=== PATIENT | female | born 1985 | race Caucasian/White ===

== ENCOUNTER → 2018-05-20 | Outpatient (CLI) | payer OTHER ==
--- NOTE | 2018-05-20 17:44 | CONS ---
CONSULTATION DATE OF SERVICE: 05/20/2018 33-year-old lady has been [facility] for sleep problems related to falling asleep and also multiple awakenings from sleep around 10 times. HISTORY OF PRESENT ILLNESS/SLEEP-WAKE EVALUATION: Patient trying to have regular sleep schedule so she is trying to go to bed at 10:00 p.m. and gets up at 6:00 a.m., although she wakes up at around 5:00 a.m. She does have problems with falling asleep, although no TV in bedroom. She sleeps in different positions including back, side and stomach. She snores and as I already mentioned above she wakes up from sleep in amount of 10 times with 2 episodes of nocturia. She wakes up with dry mouth. She is a mouth breather. She has episodes of panic attack, palpitations, sweating. She may have a history of starting to see dreams right after closing your eyes. No history of sleep paralysis or cataplexy. During the day patient trying not to take any naps following recommendations for sleep hygiene. [place] Sleepiness Scale increased to 11. In the morning patient wakes up tired, has difficulties to pay attention, worry about her sleep, has problems with memory, concentration, irritability, depression and anxiety. PAST MEDICAL HISTORY: Positive for anxiety, depression, audiovisual hallucinations. MEDICATIONS: Alprazolam, Buspirone, PAST SURGICAL HISTORY: None. FAMILY HISTORY: Hypertension, heart problems, hyperlipidemia, stroke, arthritis, sinus headaches, snoring, cancer, diabetes, thyroid problems, anemia, mental illness. SOCIAL HISTORY: Negative for smoking or using alcohol. REVIEW OF SYSTEMS: Difficulties to initiate sleep, multiple awakenings from sleep. PHYSICAL EXAM: GENERAL A 33-year-old lady without distress. VITAL SIGNS BP 128/89, HR 88, RR 18, height 5 feet 3/4, weight 204.8, BMI 38.9, temperature 98.1. Oxygen saturation on room air 97%. HEENT PERRLA, EOMI, evaluation of oropharynx showed 1 mm retrognathia, low position of soft palate. Neck is 15 inches in circumference. NECK Supple, no JVD. Thyroid is not palpable. LUNGS Clear to percussion and to auscultation. Good air exchange. No wheezing or rhonchi. HEART S1, S2 regular. No murmurs, gallops, or rubs. ABDOMEN Slightly obese. Soft and nontender. Bowel sounds are present. No organomegaly appreciated. EXTREMITIES No clubbing or cyanosis. COURT STENOGRAPHER Awake, alert, and oriented X3. Cranial nerves 2 to 7 intact. There is no fasciculation or atrophy. noted. No focal deficits observed. IMPRESSION: 1. Snoring, multiple awakenings from sleep more than 10 times, low position of soft palate, obstructive sleep apnea-hypopnea syndrome. 2. Insomnia, psychophysiological and possibly related to anxiety and depression. 3. History of anxiety. 4. History of depression. 5. History of audiovisual hallucinations. PLAN: 1. I discussed with the patient psychological techniques for treatment of insomnia including stimulus control, paradoxical intention, worry time. 2. Polysomnography for evaluation of patient's breathing during sleep. 3. CPAP/BiPAP titration if sleep study confirms obstructive sleep apnea-hypopnea syndrome. 4. Preferable position during sleep on the side. 5. No driving if patient feels any sleepiness. 6. I will see patient for follow up visit to explain results of testing and following plan. Thank you very much for referring this patient for consultation. Sincerely, Wali Woodall MD, PhD, FAASM Diplomat of [employer] Worker of [facility] [place] MMODL / BESSYN: [id number] /
== END | disposition home or self-care (01) ==
LOC: SLEEP 15:38
PROVIDERS: ATTEND Internal Medicine
DX: G47.33 Obstructive sleep apnea (adult) (pediatric) (principal); F41.9 Anxiety disorder, unspecified; F32.9 Major depressive disorder, single episode, unspecified; Z86.59 Personal history of other mental and behavioral disorders; Z79.899 Other long term (current) drug therapy
CPT/HCPCS: 99211

== ENCOUNTER 2019-07-01 21:06 | Outpatient (CLI) | payer OTHER, BC ==
[2019-07-01 22:01] VITALS: BP 134/87; PULSE 97; RESP 18; TEMP 98.7
--- NOTE | 2019-08-10 00:31 | P.MSEPDOC ---
Presenting Problems - Arrival Data Date of Arrival on Unit: 07/01/19 Time of Arrival on Unit: 21:06 Mode of Transport: Ambulatory - Complaint OB-Reason for Admission/Chief Complaint: Acute Nausea/Vomiting Medical History - Information : 2 Para: 1 Term: 1 : 0 Abortions: Spontaneous or Elective: 0 Number of Living Children: 1 - Gestational Age Gestational Age by ANDRY (wks/days): 20 Weeks and 2 Days Review of Systems - Review of Systems Constitutional: No problems Breast: No problems ENT: No problems Cardiovascular: No problems Respiratory: No problems Gastrointestinal: No problems Genitourinary: No problems Musculoskeletal: No problems Neurological: No problems Skin: No problems Vital Signs - Temperature Temperature: 98.7 F Temperature Source: Oral - Pulse Right Pulse Oximetery Pulse Rate: 97 Pulse Assessment Method: Pulse Oximetry - Respirations Respiratory Rate: 18 Oxygen Delivery Method: Room Air O2 Sat by Pulse Oximetry: 97 - Blood Pressure Right Arm Blood Pressure: 134/87 Blood Pressure Mean: 102 Blood Pressure Source: Automatic Cuff Medical Screen Scoring (Pre) - Cervical Exam Dilation: Exam Deferred Effacement: Exam Deferred Membranes: Intact - Uterine Contractions Frequency: N/A Duration: N/A Intensity: N/A - Maternal Vital Signs Maternal Temperature: N/A Signs of Preeclampsia: N/A Maternal Respirations: N/A - Maternal Trauma Maternal Trauma: N/A - Assessment - Baby A Baseline FHR: 145 Heart Rate - NICHD Category: Category I (Normal) = 0 Position: N/A Station: N/A - Total Score - Baby A Total Score - Baby A: 0 - Total Score - Baby B Total Score - Baby B: 0 - Total Score - Baby C Total Score - Baby C: 0 - Level of Risk - Baby A Level of Risk - Baby A: Low (0-5) - Level of Risk - Baby B Level of Risk - Baby B: Low (0-5) - Level of Risk - Baby C Level of Risk - Baby C: Low (0-5) Physician Notification (Pre) - Physician Notified Physician Notified Date: 07/01/19 Physician Notified Time: 21:45 Physician/Practitioner Notifed:: Yoan Spoke With: Yoan New Order Received: Yes - Notification Comment Comment: pt here for N/V x 3 hours. head cold x 1 week. HR wnl, instructions given if vomiting persists and cannot keep anything down for 24 hours to call her Dr or go to ER Disposition - Disposition OB Disposition: Discharge to home Discharge Date: 07/01/19 Discharge Time: 21:50 I agree with the RN Medical Screening Exam: Yes Risk & Benefit of care provided described in d/c instruction: Yes Diagnosis: NAUSEA WITH VOMITING, UNSPECIFIED
== END 2019-07-01 21:50 | disposition home or self-care (01) ==
LOC: FBPOP 21:06
PROVIDERS: ATTEND Obstetrics & Gynecology
DX: O21.9 Vomiting of pregnancy, unspecified (principal); Z3A.20 20 weeks gestation of pregnancy
CPT/HCPCS: 99213

== ENCOUNTER 2021-05-19 19:21 | Emergency (ER) | payer OTHER, BC ==
[2021-05-19 19:32] VITALS: TEMP 98.3
[2021-05-19] MEDS ORDERED: SODIUM CHLORIDE 0.9% 1,000 ML IV ONE (19:50)
--- NOTE | 2021-05-19 20:00 | ED ---
General Adult HPI - General Chief complaint: Vaginal Bleeding Stated complaint: vaginal bleeding, 12 weeks Time Seen by Provider: 05/19/21 19:42 Source: patient Mode of arrival: ambulatory Limitations: no limitations - History of Present Illness Initial comments: 36 year-old female patient who is almost 12 weeks , G3,P2,A0 presents to the emergency department for evaluation of vaginal bleeding. States she has had some light pink spotting during this , but today had increased bleeding. States that she had bright red bleeding that turned to brown. She has had to wear a pad but denies having to change it. She reports lower abdominal cramping. She has not had ultrasound. She is awaiting to be assigned an OBGYN at [facility] in [place]. She denies any hematuria, dysuria, urinary frequency, urinary urgency. Denies any abnormal vaginal discharge or concern for sexually transmitted infections. She's had 2 previous normal pregnancies with no complications. Patient denies any recent rash, fever, chills, cough, shortness of breath, chest pain, nausea, vomiting, diarrhea, constipation, numbness, tingling, dizziness, weakness, headache, visual changes, or any other complaints. - Related Data Home Medications Medication Instructions Recorded Confirmed Cholecalciferol [Vitamin D3 (25 1,000 unit PO DAILY 07/01/19 07/01/19 Mcg = 1000 Iu)] Folic Acid 1 mg PO DAILY 07/01/19 07/01/19 Tgh-Hwpe-Tysvd Acid 1 cap PO DAILY 07/01/19 07/01/19 [-U Capsule (formulary)] Allergies Allergy/AdvReac Type Severity Reaction Status Date / Time Influenza Virus Vaccines Allergy Severe Rash/Hives Verified 05/19/21 19:32 Latex, Natural Rubber Allergy Severe Rash/Hives Verified 05/19/21 19:32 cranberry Allergy Intermediate Rash/Hives Verified 05/19/21 19:32 jessica Allergy Intermediate Rash/Hives Verified 05/19/21 19:32 Review of Systems ROS Statement: Those systems with pertinent positive or pertinent negative responses have been documented in the HPI. ROS Other: All systems not noted in ROS Statement are negative. Past Medical History Additional Past Medical History / Comment(s): hypercholestremia. migraines History of Any Multi-Drug Resistant Organisms: None Reported Past Surgical History: Section Past Psychological History: Anxiety, Depression Smoking Status: Never smoker Past Alcohol Use History: None Reported Past Drug Use History: None Reported General Exam Limitations: no limitations General appearance: alert, in no apparent distress, other (Physical well-developed, well-nourished adult female patient in no acute distress. Vital signs upon presentation are temperature 98.2F, pulse 96, respirations 18, blood pressure 129/89, pulse ox 97% on room air.) ENT exam: Present: normal exam, normal oropharynx, mucous membranes moist Respiratory exam: Present: normal lung sounds bilaterally. Absent: respiratory distress, wheezes, rales, rhonchi, stridor Cardiovascular Exam: Present: regular rate, normal rhythm, normal heart sounds. Absent: systolic murmur, diastolic murmur, rubs, gallop, clicks GI/Abdominal exam: Present: soft, normal bowel sounds. Absent: distended, tenderness, guarding, rebound, rigid Neurological exam: Present: alert, oriented X3, CN II-XII intact Psychiatric exam: Present: normal affect, normal mood Skin exam: Present: warm, dry, intact, normal color. Absent: rash Course Vital Signs 05/19/21 05/19/21 05/19/21 19:27 20:00 21:03 Temperature 98.3 F Pulse Rate 96 94 92 Respiratory 18 20 22 Rate Blood Pressure 129/89 117/72 120/85 O2 Sat by Pulse 97 97 97 Oximetry 05/19/21 21:46 Temperature Pulse Rate 98 Respiratory 20 Rate Blood Pressure 105/69 O2 Sat by Pulse 99 Oximetry Medical Decision Making - Medical Decision Making 36-year-old female patient who believed to be 12 weeks , G3, P2 presents for evaluation of vaginal bleeding and cramping. Physical exam was unremarkable. Labs reviewed, HCG 678.1. US shows gestational sac without fetus consistent with blighted ovum. I did discuss the case with Dr. Rubi. Patient will be discharged to call in the morning for an appointment. I did discuss findings, results with the patient. She agrees with the plan. Return parameters were discussed in det ail. She verbalizes understanding. My attending is Dr. Roque. - Lab Data Result diagrams: 05/19/21 19:53 05/19/21 19:53 Lab Results 05/19/21 05/19/21 05/19/21 Range/Units 19:53 19:53 19:53 WBC 7.5 (3.8-10.6) k/uL RBC 4.84 (3.80-5.40) m/uL Hgb 14.7 (11.4-16.0) gm/dL Hct 42.2 (34.0-46.0) % MCV 87.3 (80.0-100.0) fL MCH 30.4 (25.0-35.0) pg MCHC 34.9 (31.0-37.0) g/dL RDW 12.5 (11.5-15.5) % Plt Count 305 (150-450) k/uL MPV 6.8 Neutrophils % 62 % Lymphocytes % 28 % Monocytes % 6 % Eosinophils % 1 % Basophils % 1 % Neutrophils # 4.7 (1.3-7.7) k/uL Lymphocytes # 2.1 (1.0-4.8) k/uL Monocytes # 0.5 (0-1.0) k/uL Eosinophils # 0.1 (0-0.7) k/uL Basophils # 0.1 (0-0.2) k/uL Sodium 136 L (137-145) mmol/L Potassium 4.1 (3.5-5.1) mmol/L Chloride 104 (98-107) mmol/L Carbon Dioxide 22 (22-30) mmol/L Anion Gap 10 mmol/L BUN 8 (7-17) mg/dL Creatinine 0.58 (0.52-1.04) mg/dL Est GFR (CKD-EPI)AfAm >90 (>60 ml/min/1.73 sqM) Est GFR (CKD-EPI)NonAf >90 (>60 ml/min/1.73 sqM) Glucose 117 H (74-99) mg/dL Calcium 9.9 (8.4-10.2) mg/dL Total Bilirubin 0.8 (0.2-1.3) mg/dL AST 26 (14-36) U/L ALT 21 (4-34) U/L Alkaline Phosphatase 66 (38-126) U/L Total Protein 7.3 (6.3-8.2) g/dL Albumin 4.5 (3.5-5.0) g/dL HCG, Quant 678.1 mIU/mL Urine Color Light Yellow Urine Appearance Clear (Clear) Urine pH 6.0 (5.0-8.0) Ur Specific [address] 1.006 (1.001-1.035) Urine Protein Negative (Negative) Urine Glucose (UA) Negative (Negative) Urine Ketones Negative (Negative) Urine Blood Moderate H (Negative) Urine Nitrite Negative (Negative) Urine Bilirubin Negative (Negative) Urine Urobilinogen <2.0 (<2.0) mg/dL Ur Leukocyte Esterase Negative (Negative) Urine RBC 3 (0-5) /hpf Urine WBC 1 (0-5) /hpf Ur Squamous Epith Cells 1 (0-4) /hpf Urine Bacteria Occasional H (None) /hpf Urine Mucus Rare H (None) /hpf Blood Type Blood Type Recheck Bld Type Recheck Status 05/19/21 Range/Units 19:53 WBC (3.8-10.6) k/uL RBC (3.80-5.40) m/uL Hgb (11.4-16.0) gm/dL Hct (34.0-46.0) % MCV (80.0-100.0) fL MCH (25.0-35.0) pg MCHC (31.0-37.0) g/dL RDW (11.5-15.5) % Plt Count (150-450) k/uL MPV Neutrophils % % Lymphocytes % % Monocytes % % Eosinophils % % Basophils % % Neutrophils # (1.3-7.7) k/uL Lymphocytes # (1.0-4.8) k/uL Monocytes # (0-1.0) k/uL Eosinophils # (0-0.7) k/uL Basophils # (0-0.2) k/uL Sodium (137-145) mmol/L Potassium (3.5-5.1) mmol/L Chloride (98-107) mmol/L Carbon Dioxide (22-30) mmol/L Anion Gap mmol/L BUN (7-17) mg/dL Creatinine (0.52-1.04) mg/dL Est GFR (CKD-EPI)AfAm (>60 ml/min/1.73 sqM) Est GFR (CKD-EPI)NonAf (>60 ml/min/1.73 sqM) Glucose (74-99) mg/dL Calcium (8.4-10.2) mg/dL Total Bilirubin (0.2-1.3) mg/dL AST (14-36) U/L ALT (4-34) U/L Alkaline Phosphatase (38-126) U/L Total Protein (6.3-8.2) g/dL Albumin (3.5-5.0) g/dL HCG, Quant mIU/mL Urine Color Urine Appearance (Clear) Urine pH (5.0-8.0) Ur Specific [address] (1.001-1.035) Urine Protein (Negative) Urine Glucose (UA) (Negative) Urine Ketones (Negative) Urine Blood (Negative) Urine Nitrite (Negative) Urine Bilirubin (Negative) Urine Urobilinogen (<2.0) mg/dL Ur Leukocyte Esterase (Negative) Urine RBC (0-5) /hpf Urine WBC (0-5) /hpf Ur Squamous Epith Cells (0-4) /hpf Urine Bacteria (None) /hpf Urine Mucus (None) /hpf Blood Type B Positive Blood Type Recheck No Previous Record Bld Type Recheck Status ABR ONLY - Radiology Data Radiology results: report reviewed, image reviewed Feel ultrasound was obtained. Report is reviewed in its entirety. Impression by Dr. Myrick shows intrauterine gestational sac which measures 2.4 x 3 x 1.27 years. No yolk sac or pole seen. This could relate to blighted ovum. Disposition Clinical Impression: Blighted ovum Disposition: HOME SELF-CARE Condition: Good Instructions (If sedation given, give patient instructions): Miscarriage (ED) Additional Instructions: Call [facility] in the morning for an appointment. Inform them that Dr. Rubi is aware of the case after emergency visit and you need an appointment. Return to the emergency department immediately for any new, worsening, or concerning symptoms Is patient prescribed a controlled substance at d/c from ED?: No Referrals: [facility],Clinic [Primary Care Provider] - 1-2 days Natali Rubi DO [Doctor of Osteopathic Medicine] - 1-2 days Time of Disposition: 21:40
[2021-05-19 20:17] LABS: Basophils # (A) 0.1 k/uL (0-0.2); Basophils % (A) 1 %; Eosinophils # (A) 0.1 k/uL (0-0.7); Eosinophils % (A) 1 %; HCT 42.2 % (34.0-46.0); HGB 14.7 gm/dL (11.4-16.0); Lymphocytes # (A) 2.1 k/uL (1.0-4.8); Lymphocytes % (A) 28 %; MCH 30.4 pg (25.0-35.0); MCHC 34.9 g/dL (31.0-37.0); MCV 87.3 fL (80.0-100.0); Mean Platelet Volume 6.8; Monocytes # (A) 0.5 k/uL (0-1.0); Monocytes % (A) 6 %; Neutrophils # (A) 4.7 k/uL (1.3-7.7); Neutrophils % (A) 62 %; Platelet Count 305 k/uL (150-450); RBC 4.84 m/uL (3.80-5.40); RDW 12.5 % (11.5-15.5); WBC 7.5 k/uL (3.8-10.6)
[2021-05-19 20:21] LABS: Appearance,Urine Clear (Clear); Bacteria,Urine Occasional /hpf; Bilirubin,Urine Negative (Negative); Blood,Urine Moderate (Negative); Color,Urine Light Yellow; Glucose,Urine (UA) Negative (Negative); Ketones,Urine Negative (Negative); Leukocyte Esterase,Urine Negative (Negative); Mucus,Urine Rare /hpf; Nitrite,Urine Negative (Negative); Protein,Urine Negative (Negative); RBC,Urine 3 /hpf (0-5); Specific Gravity,Urine 1.006 (1.001-1.035); Squamous Epithelial Cell,Urine 1 /hpf (0-4); Urobilinogen,Urine <2.0 mg/dL (<2.0); WBC,Urine 1 /hpf (0-5)
[2021-05-19 20:29] LABS: ALT 21 U/L (4-34); AST 26 U/L (14-36); African American GFR (CKD) >90 (>60 ml/min/1.73 sqM); Albumin 4.5 g/dL (3.5-5.0); Alkaline Phosphatase 66 U/L (38-126); Anion Gap 10 mmol/L; Blood Urea Nitrogen 8 mg/dL (7-17); Calcium 9.9 mg/dL (8.4-10.2); Carbon Dioxide 22 mmol/L (22-30); Chloride 104 mmol/L (98-107); Glucose 117 mg/dL (74-99); Non-African American GFR(CKD) >90 (>60 ml/min/1.73 sqM); Potassium 4.1 mmol/L (3.5-5.1); Sodium 136 mmol/L (137-145); Total Bilirubin 0.8 mg/dL (0.2-1.3); Total Protein 7.3 g/dL (6.3-8.2)
[2021-05-19 20:45] LABS: HCG,Quantitative Serum 678.1 mIU/mL
--- NOTE | 2021-05-19 21:06 | US ---
EXAMINATION TYPE: Transabdominal DATE OF EXAM: 05/19/2021 8:46 PM COMPARISON: NONE CLINICAL HISTORY: Vaginal bleeding. bleeding EXAM PERFORMED: Transabdominal (TA) EXAM MEASUREMENTS: GESTATIONAL AGE / DATING Physician Established: Not yet established Dates by LMP: (11 weeks/5 days) EDC: 12/03/2021 Dates by First Scan: No previous this is first scan Dates by Current Scan for: No IUP seen at this time MATERNAL ANATOMY Uterus: 13.5 x 4.5 x 7.4 cm Right Ovary: 2.8 x 2.1 x 2.6 cm Left Ovary: 2.6 x 2.3 x 3.7 cm Post CDS / Adnexa: wnl Presence of free fluid: no Presence of corpus luteal cyst: no Presence of subchorionic bleed: no GESTATION / SURVEY MSD: 2.19 cm (6 weeks/5 days) IUP: No IUP seen at this time IMPRESSION: There is intrauterine gestational sac which measures 2.4 x 3 x 1.2 cm. No yolk sac or pole seen . This could relate to blighted ovum.
[2021-05-19 21:47] VITALS: BP 105/69; PULSE 98; RESP 20
== END 2021-05-19 22:07 | disposition home or self-care (01) ==
LOC: EC 19:21
DX: O02.0 Blighted ovum and nonhydatidiform mole (principal); O46.91 Antepartum hemorrhage, unspecified, first trimester; Z3A.12 12 weeks gestation of pregnancy
CPT/HCPCS: 36415; 76801; 80053; 81001; 84702; 85025; 86900; 86901; 96360; 96361; 99284

== ENCOUNTER 2021-05-21 15:17 | Day surgery (SDC) | payer BC, OTHER ==
[2021-05-21 16:01] LABS: Glucose,Whole Blood 93 mg/dL (75-99)
[2021-05-21] MEDS ORDERED: ONDANSETRON 4 MG/2 ML VIAL ONE ×2 (16:01→18:17)
[2021-05-21] MEDS ORDERED: ONDANSETRON 4 MG/2 ML VIAL IVP ONE ×2 (16:08→18:20)
[2021-05-21] MEDS ORDERED: LACTATED RINGERS 1,000 ML IV ONE (16:08)
[2021-05-21] MEDS ORDERED: SCOPOLAMINE 1.5MG/72HR PATCH TRANSDERM ONE (16:09)
[2021-05-21] MEDS ORDERED: DEXAMETHASONE SOD PHOSPHATE 4 MG/ML 1 ML VIAL IVP ONE (16:09)
[2021-05-21] MEDS ORDERED: MIDAZOLAM 2 MG/2 ML VIAL IVP ONE (16:09)
[2021-05-21] MEDS ORDERED: LIDOCAINE 1% INJ 10MG/ML (20 ML MDV) ONE (16:29)
[2021-05-21] MEDS ORDERED: MIDAZOLAM 2 MG/2 ML VIAL ONE (16:29)
[2021-05-21] MEDS ORDERED: fentaNYL (PF) 50 MCG/ML 2 ML AMP ONE (16:29)
[2021-05-21] MEDS ORDERED: PROPOFOL 10 MG/ML 20 ML VIAL IV ONE (16:29)
[2021-05-21 17:10] VITALS: TEMP 97.2
[2021-05-21 18:26] VITALS: BP 127/75; PULSE 77; RESP 20
[2021-05-21] MEDS ORDERED: KETOROLAC 15 MG/ML 1 ML VIAL ONE (18:29)
[2021-05-21] MEDS ORDERED: KETOROLAC 15 MG/ML 1 ML VIAL IVP ONE (18:30)
--- NOTE | 2021-05-21 20:13 | P.OP ---
Date of Procedure: 05/21/21 Preoperative Diagnosis: blighted ovum Postoperative Diagnosis: same Procedure(s) Performed: suction dilation and curettage Anesthesia: MAC Surgeon: Natali Rubi Estimated Blood Loss (ml): 5 IV fluids (ml): 300 Urine output (ml): 75 Pathology: other (uterine contents) Condition: stable Disposition: PACU Indications for Procedure: blighted ovum, Rh positive Operative Findings: moderate amount of products of conception Description of Procedure: Patient is taken back to the operating suite where general anesthesia was obtained without difficulty by the anesthesia . She was prepped and draped in normal sterile fashion in the dorsal lithotomy position. A catheter is used to drain the bladder of clear yellow urine. A weighted speculum was placed in the posterior vaginal vault, the interval of the cervix is visualized and grasped with a single tooth tenaculum. Endocervical canal was dilated. An 8 curved [place] curet is placed through the cervix and toward the endometrial cavity. The suction was activated and a moderate amount of products of conception are removed. An additional 2 passes are obtained to ensure the uterus is empty. A gentle curettage was then performed a slight gritty texture is appreciated. Uterus is noted to be firm. The single-tooth tenaculum was taken off of the anterior lip of the cervix hemostasis was appreciated. All instruments removed from the patient's vaginal vault. All counts were noted be correct 2 at the end of the procedure. Patient was taken to the recovery room awake in stable condition.
== END 2021-05-21 19:00 | disposition home or self-care (01) ==
LOC: OR 15:17
PROVIDERS: ATTEND Obstetrics & Gynecology Obstetrics
DX: O02.0 Blighted ovum and nonhydatidiform mole (principal)
CPT/HCPCS: 59820; J2250; J1100; J2405; J1885

== ENCOUNTER → 2021-11-19 | Outpatient (CLI) | payer OTHER ==
--- NOTE | 2021-11-19 13:51 | MR ---
EXAMINATION TYPE: MR brain wo/w con DATE OF EXAM: 11/19/2021 COMPARISON: NONE HISTORY: Migraine headaches TECHNIQUE: Multiplanar, multisequence images of the brain and brainstem is performed without and with IV contras t, utilizing 10 mL intravenous Gadavist . FINDINGS: Diffusion weighted images demonstrate no evidence of a recent infarct or other diffusion ab normality. There is no extra-axial fluid collection or significant white matter signal abnormality. The ventricular system and cisternal spaces are normal in size and appearance. The brain volume is age appropriate. Midline structures demonstrate normal morphology. The craniocervical junction appears within normal limits. Post contrast images demonstrate no abnormal enhancement. The dural venous sinuses appear pa tent. Mild mucosal thickening anterior ethmoid sinuses otherwise paranasal sinuses are clear. Globes are intact bilaterally. IMPRESSION: No significant findings seen to account for patient's symptoms of migraine headaches. Mil d anterior ethmoid chronic sinusitis otherwise unremarkable study.
== END | disposition home or self-care (01) ==
LOC: RADMRIMAIN 12:47
PROVIDERS: ATTEND Psychiatry & Neurology Neurology
DX: J32.2 Chronic ethmoidal sinusitis (principal)
CPT/HCPCS: 70553; A9585

== ENCOUNTER → 2022-11-03 | Outpatient (CLI) | payer OTHER ==
--- NOTE | 2022-11-04 20:45 | MM ---
Reason for Exam: Screening (asymptomatic). Baseline mammogram. Patient History: Menarche at age 8. First Full-Term at age 27. Maternal grandmother had breast cancer. Paternal grandmother had breast cancer. Last menstrual period: 11/03/2022 Risk Values: Veronica 5 year model risk: 0.6%. NCI Lifetime model risk: 12.2%. Prior Study Comparison: Patient's first Mammogram. Tissue Density: There are scattered fibroglandular densities. Findings: Analyzed By CAD. Dermal calcifications posterior inferior right breast are benign. No significant mass, suspicious microcalcification, or other discrete abnormality is seen. Overall Assessment: Negative, BI-RAD 1 Management: Screening Mammogram of both breasts in 1 year. 1. Patient should continue monthly self breast exams. 2. A clinical breast exam by your physician is recommended on an annual basis. 3. This exam should not preclude additional follow-up of suspicious palpable abnormalities. Electronically signed and approved by: Jose Alejandro Ruth M.D. Radiologist
== END | disposition home or self-care (01) ==
LOC: RADMAMWWP 14:44
DX: Z12.31 Encounter for screening mammogram for malignant neoplasm of breast (principal); Z80.3 Family history of malignant neoplasm of breast
CPT/HCPCS: 77067

== ENCOUNTER 2023-11-14 10:46 | Inpatient (IN) | payer OTHER ==
[2023-11-14] MEDS ORDERED: CARBOPROST TROMETHAMINE 250 MCG/ML 1 ML AMP IM PRN (11:11)
[2023-11-14] MEDS ORDERED: METHYLERGONOVINE 0.2 MG/ML 1 ML AMP IM PRN (11:11)
[2023-11-14] MEDS ORDERED: CITRIC ACID-SODIUM CITRATE 15 ML CUP PO ONE (11:11)
[2023-11-14] MEDS ORDERED: miSOPROStoL 200 MCG TAB PO PRN (11:11)
[2023-11-14] MEDS ORDERED: TRANEXAMIC 1,000 MG/100ML-NACL 1,000 MG in EMPTY BAG 1 BAG IV PRN (11:11)
[2023-11-14] MEDS ORDERED: OXYTOCIN 10 UNIT/ML 1 ML VIAL IM PRN (11:11)
[2023-11-14] MEDS: LACTATED RINGERS 1,000 ML IV SCH ×5 (11:48→22:19)
--- NOTE | 2023-11-14 11:52 | P.HPOB ---
History of Present Illness H&P Date: 11/14/23 Chief Complaint: 37-6/7 weeks, previous , labor, undesired fertility The patient is a 38-year-old 4 para 2011 who presents to labor and delivery at 37-6/7 weeks as established by last menstrual period and confirmed by second trimester ultrasound. She presents with contractions beginning last night and remaining consistent throughout the night and quite uncomfortable in nature. On labor and delivery she is noted to be radha every 2-3 minutes with a category and heart rate tracing. Her cervix in the office was reportedly 1-2 cm which remains here today but is now 90% effaced with significant pressure on the lower uterine segment. She has requested intraoperative tubal ligation and I have discussed with her the different options including bilateral salpingectomy versus Filshie clips. She has selected Filshie clips. She does fall into the category of advanced maternal age and declined trisomy testing. Her was otherwise complicated by gestational diabetes which was reportedly on, located in nature with reassuring testing. She additionally was found to have polyhydramnios at full-term. The fetus is also known to have a single umbilical artery. Group B strep status is negative. Obstetrical history: 4 para 2011 with 2 previous sections. Current statistics are listed in history present illness. EDC of 11/29/2023 was established by last menstrual period and confirmed by second trimester ultrasound. Laboratory workup demonstrates a blood type of B+ with a negative antibody screen. Rubella status is immune. The remainder of the laboratory workup was within normal limits. Early Glucola was elevated and followed by a normal three-hour glucose tolerance test. Second trimester Glucola was elevated and followed by an abnormal three-hour glucose tolerance test. Group B strep status is negative. Gynecologic history: Unremarkable with no history of any infections to include STDs. Review of Systems Review of systems is confined to history of present illness. Past Medical History Additional Past Medical History / Comment(s): hypercholestremia. migraines History of Any Multi-Drug Resistant Organisms: None Reported Past Surgical History: Section Past Psychological History: Anxiety, Depression Smoking Status: Never smoker Past Alcohol Use History: None Reported Past Drug Use History: None Reported Medications and Allergies Home Medications Medication Instructions Recorded Confirmed Type Cholecalciferol [Vitamin D3 (25 1,000 unit PO DAILY 07/01/19 05/21/21 History Mcg = 1000 Iu)] Tdl-Vjrr-Hykix Acid 1 cap PO DAILY 07/01/19 05/21/21 History [-U Capsule (formulary)] RX: Folic Acid 1 mg PO DAILY 07/01/19 05/21/21 History Allergies Allergy/AdvReac Type Severity Reaction Status Date / Time Influenza Virus Vaccines Allergy Severe Rash/Hives Verified 05/21/21 15:47 Latex, Natural Rubber Allergy Severe Rash/Hives Verified 05/21/21 15:47 cranberry Allergy Intermediate Rash/Hives Verified 05/21/21 15:47 jessica Allergy Intermediate Rash/Hives Verified 05/21/21 15:47 paroxetine [From Paxil] AdvReac Hallucinati Verified 05/21/21 16:14 ons Exam Intake and Output 11/13/23 11/14/23 11/14/23 22:59 06:59 14:59 Other: Weight 89.902 kg In general, this is a well-developed, well-nourished white female in some discomfort as she is in early labor. Her heart has a regular rhythm and rate without murmur. Her lungs clear to auscultation bilaterally in all [place]. Her abdomen is gravid, nondistended, has normal active bowel sounds, is soft, nontender, and without any palpable masses aside from uterine fundus. Her extremities are without any cyanosis, clubbing, or edema and are nontender to palpation. Digital cervical examination performed by the nursing staff demonstrates her cervix to be 1+ meters dilated, 90% effaced, with the vertex high presentation. Assessment and Plan (1) Active labor at term Current Visit: Yes Status: Acute Code(s): NEF8328 - SNOMED Code(s): 80364039 (2) Previous section Current Visit: Yes Status: Acute Code(s): Z98.891 - HISTORY OF UTERINE SCAR FROM PREVIOUS SURGERY SNOMED Code(s): 342159729 (3) Family planning Current Visit: Yes Status: Acute Code(s): Z30.09 - ENCOUNTER FOR OTH GENERAL CNSL AND ADVICE ON CONTRACEPTION SNOMED Code(s): 543651287 (4) Gestational diabetes Current Visit: Yes Status: Acute Code(s): O24.419 - GESTATIONAL DIABETES MELLITUS IN , UNSP CONTROL SNOMED Code(s): 75765367 (5) Polyhydramnios Current Visit: Yes Status: Acute Code(s): O40.9XX0 - POLYHYDRAMNIOS, UNSP TRIMESTER, NOT APPLICABLE OR UNSP SNOMED Code(s): 84028302 Plan: The patient is admitted for repeat low transverse section with intraoperative tubal ligation. I discussed bilateral salpingectomy versus tubal occlusion with Filshie clips in detail with the patient and her . They have decided to proceed with bilateral tubal occlusion with Filshie clips. The risks and, occasions of all the procedures have been thoroughly discussed and they have agreed to proceed.
[2023-11-14] MEDS ORDERED: KETOROLAC 15 MG/ML 1 ML VIAL ONE (12:21)
[2023-11-14] MEDS ORDERED: MORPHINE SULFATE (PF) 0.3 MG/0.3 ML SYR ONE (12:21)
[2023-11-14] MEDS ORDERED: ONDANSETRON 4 MG/2 ML VIAL ONE (12:21)
[2023-11-14 12:46] LABS: Basophils % (A) 0 %; Eosinophils % (A) 0 %; HCT 39.6 % (34.0-46.0); HGB 13.5 gm/dL (11.4-16.0); Lymphocytes # (A) 1.4 k/uL (1.0-4.8); Lymphocytes % (A) 16 %; MCH 30.2 pg (25.0-35.0); MCHC 33.9 g/dL (31.0-37.0); MCV 88.9 fL (80.0-100.0); Mean Platelet Volume 9.3; Monocytes # (A) 0.5 k/uL (0-1.0); Monocytes % (A) 6 %; Neutrophils # (A) 6.6 k/uL (1.3-7.7); Neutrophils % (A) 75 %; Platelet Count 195 k/uL (150-450); RBC 4.46 m/uL (3.80-5.40); RDW 14.9 % (11.5-15.5); WBC 8.8 k/uL (3.8-10.6)
[2023-11-14] MEDS ORDERED: NALOXONE 0.4 MG/ML 1 ML VIAL IV PRN (13:15)
[2023-11-14] MEDS ORDERED: diphenhydrAMINE 50 MG CAP PO PRN (13:15)
[2023-11-14] MEDS ORDERED: diphenhydrAMINE 25 MG CAP PO PRN (13:15)
[2023-11-14] MEDS ORDERED: LANOLIN CREAM 5 GM TUBE TOPICAL PRN (13:15)
[2023-11-14] MEDS ORDERED: METOCLOPRAMIDE 5 MG/ML 2 ML VIAL IVP PRN (13:15)
[2023-11-14] MEDS ORDERED: ZOLPIDEM 5 MG TAB PO PRN (13:15)
[2023-11-14] MEDS ORDERED: SIMETHICONE 80 MG CHEWABLE PO PRN (13:15)
[2023-11-14] MEDS ORDERED: ONDANSETRON 4 MG/2 ML VIAL IVP PRN (13:15)
[2023-11-14] MEDS ORDERED: diphenhydrAMINE 50 MG/ML 1 ML VIAL IVP PRN ×2 (13:15)
[2023-11-14] MEDS ORDERED: OXYTOCIN 30 UNITS/500 ML NS 30 UNIT in SALINE 1 500ML.BAG IV SCH (13:15)
--- NOTE | 2023-11-14 13:23 | P.OP ---
Date of Procedure: 11/14/23 Preoperative Diagnosis: #1. 37-6/7 weeks, labor #2. Previous section, requesting repeat #3. Undesired fertility #4. Polyhydramnios Postoperative Diagnosis: Same Procedure(s) Performed: #1. Repeat low transverse section #2. Intraoperative bilateral tubal occlusion with Filshie clips Anesthesia: spinal Surgeon: Neftaly Ken Senior Firmware Engineer #1: Ngoc Milton Estimated Blood Loss (ml): 590 IV fluids (ml): 700 Urine output (ml): 100 Pathology: other (Placenta) Condition: stable Disposition: floor Operative Findings: See dictated H&P for details leading to section. In short, the patient presented in labor with history of previous section. She was taken the operating room where she was delivered of a viable 8 lbs. 1 oz. baby boy with Apgars of 7 at 1 minute and 9 at 5 minutes in the occiput anterior position. The placenta was delivered manually, intact, and grossly normal with a grossly normal three-vessel cord. The tubes and ovaries were entirely normal to inspection bilaterally. Uterus is normal aside from having a roughly 3-4 cm right posterior fundal fibroid which was subserosal in nature. Additionally, the lower uterine segment was significantly thin prior to delivery of the . A Filshie clip was placed firmly across the isthmic portion of each fallopian tube bilaterally. Description of Procedure: The patient was prepped and draped in usual fashion after spinal anesthesia was administered by the anesthesiologist. A Pfannenstiel incision was made through pre-existing scar and extended into the abdominal cavity without difficulty. The bladder peritoneum was elevated, incised, and reflected distally. A 2 cm incision was made in the transverse plane of the lower uterine segment to enter the uterus at which time clear fluid was noted and copious amounts, slightly more than 1.7 L was drained prior to delivery of the . The incision was extended in both directions using the bandage scissors. The head was delivered up and through the incision where the nose and mouth were thoroughly suctioned. The remainder of the was delivered onto the field where the cord was doubly clamped, cut, and the passed for resuscitative measures with weight and Apgars as noted above. A segment of cord was doubly clamped, cut, and set aside should cord gases become necessary. The placenta was delivered manually, intact, and grossly normal. The uterus was exteriorized and the interior cavity of uterus swept of any remaining placental or membranous fragments. The margins of the uterine incision were grasped with Thompson clamps and the incision closed in a single running locking stitch of 0 chromic catgut from margin to margin. Hemostasis appeared to be excellent. The posterior cul-de-sac was suctioned with a guard and then [place] by laparotomy sponge. The uterine and ovarian findings are as noted above. The lower uterine segment had been extraordinarily thin and was purposely opened above that thin layer at the time of hysterotomy. There was a roughly 4 cm right slightly posterior fundal fibroid subserosal in nature. After again confirming with the patient her desire for permanent sterilization, a Filshie clip was placed firmly across the left fallopian tube approximately 2-3 cm from the cornu. A similar matching Filshie clip was placed on the right fallopian tube was firmly affixed 2-3 cm from the cornea across the entire width of the tube. The uterus was then replaced within the abdominal cavity and the gutters swept of any remaining blood, fluid, or clot. Reexamination of the incision demonstrated good hemostasis with the exception of 1 peritoneal bleeder made hemostatic with the Bovie. After assuring hemostasis, the parietal peritoneum was loosely reapproximated in the layer of muscles examined and made hemostatic with the Bovie. The fascia was closed with 2 running stitches of 0 Vicryl proceeding from the lateral margins to the midpoint. The subcutaneous tissues were irrigated, made hemostatic with the Bovie, and reapproximated with a running stitch of 30 plain catgut from angle to angle. The skin was reapproximated with a running subcuticular stitch of 4-0 Vicryl followed by half-inch Steri-Strips placed with Mastisol.
[2023-11-14] MEDS: ACETAMINOPHEN TAB 500 MG TAB PO SCH ×2 (15:49→22:18)
[2023-11-14] MEDS: KETOROLAC 15 MG/ML 1 ML VIAL IVP PRN (19:48)
[2023-11-14] MEDS: SENNOSIDES-DOCUSATE SODIUM 1 EACH TAB PO SCH (19:48)
[2023-11-14 20:32] LABS: Glucose,Whole Blood 84 mg/dL (70-110)
[2023-11-14] MEDS: IBUPROFEN 600 MG TAB PO SCH (20:52)
[2023-11-15] MEDS: KETOROLAC 15 MG/ML 1 ML VIAL IVP PRN ×2 (01:57→08:07)
[2023-11-15] MEDS: ACETAMINOPHEN TAB 500 MG TAB PO SCH ×4 (05:37→21:46)
[2023-11-15 05:48] LABS: Basophils % (A) 0 %; Eosinophils % (A) 0 %; HCT 34.2 % (34.0-46.0); HGB 11.7 gm/dL (11.4-16.0); Lymphocytes # (A) 1.3 k/uL (1.0-4.8); Lymphocytes % (A) 14 %; MCH 30.9 pg (25.0-35.0); MCHC 34.3 g/dL (31.0-37.0); MCV 89.9 fL (80.0-100.0); Mean Platelet Volume 8.6; Monocytes # (A) 0.5 k/uL (0-1.0); Monocytes % (A) 5 %; Neutrophils # (A) 7.3 k/uL (1.3-7.7); Neutrophils % (A) 79 %; Platelet Count 200 k/uL (150-450); WBC 9.2 k/uL (3.8-10.6)
[2023-11-15] MEDS: LACTATED RINGERS 1,000 ML IV SCH ×2 (06:16→21:13)
[2023-11-15] MEDS: SENNOSIDES-DOCUSATE SODIUM 1 EACH TAB PO SCH ×2 (08:07→21:11)
[2023-11-15] MEDS: IBUPROFEN 600 MG TAB PO SCH ×3 (08:32→21:39)
--- NOTE | 2023-11-15 08:40 | P.PN ---
Progress Note - Text 11/15/23 747am 38-year-old female status post with spinal Duramorph. Patient seen and evaluated for postop pain control, she has VAS of 4, she did have nausea vomiting, feeling better. She has pruritus which should subside
--- NOTE | 2023-11-15 11:05 | P.PNOBGPC ---
Subjective - Subjective Patient reports: Reports appetite normal, Reports voiding normally, Reports pain well controlled, Reports ambulating normally : doing well Objective - Vital Signs Latest vital signs: Vital Signs Temp Pulse Resp BP Pulse Ox 11/15/23 08:00 98.1 F 73 18 95/68 98 11/15/23 04:00 98 F 74 18 106/63 11/15/23 00:00 98.0 F 73 16 103/69 11/14/23 19:51 97.9 F 82 16 107/70 99 11/14/23 15:15 98.2 F 85 18 100/60 100 11/14/23 14:45 60 104/62 96 11/14/23 14:30 96.8 F L 64 18 105/56 100 11/14/23 14:15 70 90/59 99 11/14/23 14:00 96.0 F L 81 18 108/55 96 11/14/23 13:45 97.5 F L 68 18 95/57 97 11/14/23 13:30 18 99 11/14/23 13:15 96.9 F L 69 18 110/62 96 11/14/23 12:09 97.9 F 100 16 110/71 98 11/14/23 11:47 97.9 F 100 16 110/71 98 Intake and Output 11/14/23 11/15/23 11/15/23 22:59 06:59 14:59 Output Total 900 700 Balance -900 -700 Output: Urine 700 700 Uretheral (Rosenbaum) 400 Output, Quantitative 200 Blood Loss Other: # Voids 1 1 - Exam Extremities: Present: normal Abdomen: Present: normal appearance, soft. Absent: distention, tenderness Incision: Present: normal, dry, intact Uterus: Present: normal, firm (The uterine fundus is tonic and minimally tender below the umbilicus.) Assessment and Plan (1) Active labor at term Current Visit: Yes Status: Acute Code(s): [id number] - SNOMED Code(s): 42740093 (2) Previous section Current Visit: Yes Status: Acute Code(s): Z98.891 - HISTORY OF UTERINE SCAR FROM PREVIOUS SURGERY SNOMED Code(s): 179924912 (3) Family planning Current Visit: Yes Status: Acute Code(s): Z30.09 - ENCOUNTER FOR OTH GENERAL CNSL AND ADVICE ON CONTRACEPTION SNOMED Code(s): 539174898 (4) Gestational diabetes Current Visit: Yes Status: Acute Code(s): O24.419 - GESTATIONAL DIABETES MELLITUS IN , UNSP CONTROL SNOMED Code(s): 59334182 (5) Polyhydramnios Current Visit: Yes Status: Acute Code(s): O40.9XX0 - POLYHYDRAMNIOS, UNSP TRIMESTER, NOT APPLICABLE OR UNSP SNOMED Code(s): 57323445 (6) S/P section Current Visit: Yes Status: Acute Code(s): Z98.891 - HISTORY OF UTERINE SCAR FROM PREVIOUS SURGERY SNOMED Code(s): 683507246 Plan: Continue routine and postoperative care. I have encouraged patient ambulate in the hallways routinely. I would anticipate discharge home tomorrow pending no complications.
[2023-11-16] MEDS: IBUPROFEN 600 MG TAB PO SCH ×2 (01:56→05:52)
[2023-11-16] MEDS: ACETAMINOPHEN TAB 500 MG TAB PO SCH ×2 (05:53→08:26)
[2023-11-16 08:20] VITALS: BP 110/75; PULSE 87; RESP 15; TEMP 98.5
[2023-11-16] MEDS: SENNOSIDES-DOCUSATE SODIUM 1 EACH TAB PO SCH (08:28)
--- NOTE | 2023-11-16 12:42 | P.DS ---
Providers Date of admission: 11/14/23 11:08 Expected date of discharge: 11/16/23 Attending physician: Natali Rubi Primary care physician: Stated None - Discharge Diagnosis(es) (1) Active labor at term Current Visit: Yes Status: Acute (2) Advanced maternal age (AMA) in Current Visit: Yes Status: Acute (3) Family planning Current Visit: Yes Status: Acute (4) Fibroid uterus Current Visit: Yes Status: Acute (5) Gestational diabetes Current Visit: Yes Status: Acute (6) Polyhydramnios Current Visit: Yes Status: Acute (7) Previous section Current Visit: Yes Status: Acute (8) S/P section Current Visit: Yes Status: Acute Hospital Course: This is a 38-year-old 4 now para 3-0-1-3 that presented to labor and delivery at 37-6/7 weeks with a complaints of regular painful contractions throughout the evening. Patient been receiving routine care with a diagnosis of gestational diabetes which has been moderately well-controlled with diet, patient did have known polyhydramnios with last amniotic fluid index last week of 30. Patient had been undergoing testing without complication. Patient was deemed to be in labor and was previously scheduled for repeat section with tubal ligation. Patient was taken back for repeat section with tubal ligation. For full details on the operative procedure please see the dictated operative note. Patient's course has been uneventful. This postoperative day #2 she is ambulating and voiding without difficulty. She is tolerating a regular diet without nausea or vomiting. States her pain is well-controlled. She denies concerns. She would like discharge home. Patient Condition at Discharge: Good Plan - Discharge Summary New Discharge Prescriptions: No Action Folic Acid 1 mg PO DAILY Fof-Kqhp-Mhroi Acid [-U Capsule (formulary)] 1 cap PO DAILY Cholecalciferol [Vitamin D3 (25 Mcg = 1000 Iu)] 1,000 unit PO DAILY Discharge Medication List Cholecalciferol [Vitamin D3 (25 Mcg = 1000 Iu)] 1,000 unit PO DAILY 07/01/19 [History] Folic Acid 1 mg PO DAILY 07/01/19 [History] Viu-Jntn-Zjpbo Acid [-U Capsule (formulary)] 1 cap PO DAILY 07/01/19 [History] Follow up Appointment(s)/Referral(s): Natali Rubi DO [Doctor of Osteopathic Medicine] - 2 Weeks Patient Instructions/Handouts: (DC), (GEN) Activity/Diet/Wound Care/Special Instructions: No tub baths or intercourse until 6 weeks , llzc-hbo-rasftal ibuprofen 600 mg or 3 tablets every 6 hours as needed for pain. bleeding is reviewed. Discharge Disposition: HOME SELF-CARE
== END 2023-11-16 12:45 | disposition home or self-care (01) | DRG 785 ==
LOC: FBPOP 10:46 → 4FBP 11:08
PROVIDERS: ADMIT Obstetrics & Gynecology; ATTEND Obstetrics & Gynecology Obstetrics
PROC: 10D00Z1 Extraction of Products of Conception, Low, Open Approach (ICD-10-PCS; principal; 2023-11-14 12:30)
PROC: 0UB70ZZ Excision of Bilateral Fallopian Tubes, Open Approach (ICD-10-PCS; principal; 2023-11-14 12:30)
DX: O34.211 Maternal care for low transverse scar from previous cesarean delivery (principal); O34.13 Maternal care for benign tumor of corpus uteri, third trimester; O40.3XX0 Polyhydramnios, third trimester, not applicable or unspecified; O69.89X0 Labor and delivery complicated by other cord complications, not applicable or unspecified; O99.344 Other mental disorders complicating childbirth; O24.429 Gestational diabetes mellitus in childbirth, unspecified control; L29.9 Pruritus, unspecified; F41.9 Anxiety disorder, unspecified; F32.A Depression, unspecified; D25.9 Leiomyoma of uterus, unspecified; G43.909 Migraine, unspecified, not intractable, without status migrainosus; Z30.2 Encounter for sterilization; Z37.0 Single live birth; Z3A.37 37 weeks gestation of pregnancy; Z28.310 Unvaccinated for COVID-19; Z28.21 Immunization not carried out because of patient refusal; Z88.7 Allergy status to serum and vaccine; Z91.040 Latex allergy status
CPT/HCPCS: 59025; 83036; 85025; 86850; 86900; 86901; 88307; 99213

== ENCOUNTER → 2025-03-28 | Outpatient (CLI) | payer OTHER ==
--- NOTE | 2025-03-28 09:49 | MM ---
Reason for Exam: Screening (asymptomatic). Last mammogram was performed 2 year(s) and 5 month(s) ago. Patient History: Menarche at age 8. First Full-Term at age 27. Maternal grandmother had breast cancer. Paternal grandmother had breast cancer. Last menstrual period: 03/14/2025 Risk Values: Veronica 5 year model risk: 0.8%. NCI Lifetime model risk: 11.9%. Prior Study Comparison: 11/03/2022 Bilateral MG screening mammo w CAD, [facility]. Tissue Density: There are scattered areas of fibroglandular density. Findings: Analyzed By CAD. Areas of bilateral asymmetric density remain unchanged. Benign dermal calcifications medially on both sides are redemonstrated. There is no suspicious group of microcalcifications or new suspicious mass in either breast. Overall Assessment: Benign, BI-RAD 2 Management: Screening Mammogram of both breasts in 1 year. Patient should continue monthly self-breast exams. A clinical breast exam by your physician is recommended on an annual basis. This exam should not preclude additional follow-up of suspicious palpable abnormalities. Note on Veronica scores and lifetime risk: 1. A Veronica score greater than 3% is considered moderate risk. If this is the case, consider specialist referral to assess eligibility for a risk reducing agent. 2. If overall lifetime risk for the development of breast cancer is 20% or higher, the patient may qualify for future screening with alternating mammogram and breast MRI. [facility], , 03/28/2025 9:46 AM. Electronically signed and approved by: Jose Alejandro Ruth M.D. Radiologist
== END | disposition home or self-care (01) ==
LOC: RADMAMWWP 08:43
PROVIDERS: ATTEND Family Medicine
DX: Z12.31 Encounter for screening mammogram for malignant neoplasm of breast (principal); R92.323 Mammographic fibroglandular density, bilateral breasts; Z80.3 Family history of malignant neoplasm of breast
CPT/HCPCS: 77063; 77067